=== PATIENT | male | born 1940 | race Caucasian/White ===

== ENCOUNTER 2023-09-24 11:00 | Day surgery (SDC) | payer MEDICARE, SELFPAY ==
--- NOTE | 2023-09-21 07:56 | CM ---
Patient is scheduled for an elective R THR on 09/24/23. Spoke with patient prior to surgery via telephone. Introduced role of Orthopedic Navigator. Patient reports that he lives with his in a one story condo. There is one step to enter. He
currently functions independently. He has a rolling walker and cane. He has never had VN services. PCP is Dr. Estela Choudhary.
Discussed orthopedic program and post surgical plans. Reviewed that goal is for him to return home when directed by surgeon. Also reviewed outpatient PT and additional DME he will need. Patient is in agreement with tentative plan and will go
directly to outpatient PT at [facility]. He will have support from his when he goes home.
Patient will complete online education.
Plan: Orthopedic Navigator will remain available to assist with the care of patient and will reassess discharge needs after surgery.
[2023-09-22 12:28] VITALS: BMI 27.1
[2023-09-22 13:35] LABS: Hemoglobin 13.9 g/dL (13.0-18.0); Mean Corp Hgb Conc. 33.9 g/dL (33.0-37.0); Mean Corpuscular Hgb 29.9 pg (27.0-31.0); Mean Corpuscular Volume 88.2 fL (80.0-94.0); Mean Platelet Volume 9.6 fL (7.4-10.4); Platelet Count 210 10^3/uL (130-400); Red Blood Cell Count 4.65 10^6/uL (4.70-6.10); Red Cell Dist. Width 13.1 % (11.5-14.5); White Blood Cell Count 6.9 10^3/uL (4.8-10.8)
[2023-09-22 14:04] LABS: ALT (SGPT) 29 U/L (0-50); AST (SGOT) 29 U/L (17-59); Albumin 4.2 g/dl (3.5-5.0); Alkaline Phosphatase 90 U/L (38-126); Blood Urea Nitrogen 35 mg/dl (9-20); Calcium 9.8 mg/dl (8.4-10.2); Carbon Dioxide 26 mmol/L (22-30); Chloride 105 mmol/L (98-107); Estimated Creatinine Clearance 37 ml/min; Glucose 90 mg/dl (70-99); Sodium 141 mmol/L (135-145); Total Bilirubin 0.8 mg/dl (0.2-1.3); Total Protein 6.9 g/dl (6.3-8.2); eGFR 45.62
[2023-09-22 14:39] VITALS: BMI 27.1
[2023-09-23 14:45] LABS: Glycohemoglobin (HgbA1c) 5.5 % (4.0-5.6)
[2023-09-24] VITALS (14 sets, daily range): BP systolic 70–165; BP diastolic 42–84; PULSE 61; O2SAT 95–96; BMI 27.1
[2023-09-24] MEDS: CELEBREX 200 MG PO (12:07)
[2023-09-24] MEDS: TYLENOL 650 MG PO ×4 (12:07→23:39)
[2023-09-24] MEDS: NORMOSOL-R 1000 IV ×2 (12:09→15:45)
--- NOTE | 2023-09-24 14:58 | OR.RPT ---
Operative Report
Operative Report
Orthopaedic Surgery Operative Note
DATE OF OPERATION: 09/24/2023
PREOPERATIVE DIAGNOSES: Osteoarthritis, right hip
POSTOPERATIVE DIAGNOSES: Same
OPERATION PERFORMED: Right total hip arthroplasty.
SURGEON: Laurent Kilpatrick MD
LINEN SUPPLY LOAD BUILDER: Julián Cueva PA-C who assisted with patient positioning and retraction
ANESTHESIA: Spinal
COMPLICATIONS: None.
ESTIMATED BLOOD LOSS: 50 mL.
DRAINS: None
SPECIMEN: None
FINDINGS: Advanced articular cartilage wear on the femoral head and acetabulum.
IMPLANTS:
Shena Trilogy Acetabular Shell, cluster hole, size 58
Shena Trilogy Highly Crosslinked PE Liner, neutral
Shena M/L Taper femoral stem, size 10 with standard neck length and standard offset
Biolox Ceramic Head, size 40mm +0
INDICATIONS: The patient presented to my office with debilitating right hip pain due to osteoarthritis. We reviewed the natural history of this problem, as well as the risks, benefits, and alternatives of various treatment options. The patient
exhausted all nonoperative treatment options and wished to proceed with hip replacement surgery. The patient understood the risks which included, but were not limited to, bleeding, infection, failure to relieve pain, more pain than preop, damage to
blood vessels and nerves, need for reoperation, mechanical failure of the implants, wound healing problems, stiffness, instability, blood clot, pulmonary embolism, myocardial infarction, pneumonia, arrhythmia, CVA, and . The patient accepted
these risks and wished to proceed. All questions were answered, and informed consent was obtained.
PROCEDURE IN DETAIL: The patient was identified in the preoperative holding area. The right hip was identified as the operative site. The patient was taken in the operating room and transferred to the operative table. Spinal anesthesia was
performed. IV antibiotics and tranexamic acid were administered. The patient was placed in the lateral position with Stulberg hip positioners. Axillary roll was placed. The down leg was well padded. All bony prominences were well padded. The
operative limb was prepped and draped in the usual sterile fashion.
Time out was performed. A posterolateral approach to the hip was used. The skin incision was centered over the greater trochanter. This was taken down sharply through subcutaneous tissues. Meticulous hemostasis was achieved throughout the case with
electrocautery. We split the fascia geeta in line with skin incision. I split the gluteus hayley bluntly. We cauterized all crossing vessels as we split it. I palpated the sciatic nerve and made sure it was well posterior in the operative field. It
was protected throughout the case.
I performed a partial bursectomy to identify the short external rotators. The gluteus medius and minimus were identified and retracted anteriorly. I incised the piriformis tendon and conjoint tendon at their insertions. These were tagged for later
repair. I then performed a trapezoidal capsulotomy. The edges were tagged for later repair. I referenced the cut edge of the capsular flap to 2 fixed points on the greater trochanter for assistance with recreation of limb length and offset. I then
dislocated the hip posteriorly. I performed a femoral neck osteotomy approximately 10 mm above the lesser trochanter, as per preoperative templating. The femoral head measured 54 mm in outer diameter. The distance between neck cut and the center of
femoral head was 37.5mm. I placed a curve hohmann retractor over the anterior lip of the acetabulum between the labrum and the anterior hip capsule. A second retractor was placed inferiorly just distal to the transverse acetabular ligament.
Circumferential view of the acetabulum was achieved. I incised the labrum and pulvinar with electrocautery. I started with a 53 mm reamer and reamed down to the medial wall. I then sequentially reamed up to a 57mm reamer. This gave a nice bed of
bleeding bone with excellent column support anteriorly and posteriorly. I impacted the acetabular shell in approximately 40 degrees of abduction and 20 degrees of anteversion. I matched the anteversion of the transverse acetabular ligament. I also
made sure that the anterior rim of the socket was not proud of the anterior wall to minimize the chance of iliopsoas tendinitis. I confirmed the cup was well-seated. I then impacted a neutral liner and confirmed it was well seated with the locking
mechanism.
On the femoral side, I use a box osteotome to open the proximal starting point. I found the canal with a Charnley awl and a lateralizing reamer. I then used the Shena M/L taper broaches sequentially to prepare the femoral canal. The size 10 came to
a stop at the desired level and had excellent axial and rotational stability. We trialed with a trial ball head. The hip was taken through a complete range of motion. It was noted to be stable in extension without impingement. It was stable in the
position of sleep and in flexion with internal rotation. The limb length and offset were checked compared to the capsular flap and was appropriate. The measured length between the neck cut and center of the trial femoral head was 40mm.
I removed the trials. I impacted the femoral implant to match the [place] version. It had excellent axial and rotational stability. Trial ball head was placed, and I reduced the hip and took the hip through range of motion. There was no impingement
in external rotation and extension. Position of sleep was stable. At 90 degrees of flexion and slight adduction, the hip could be internally rotated to 90 degrees with no subluxation. I palpated the sciatic nerve, which was tension free and
unharmed. Based on our capsular flap measurement, we had restored the offset and leg length. The trial ball head was removed, and the final ball head was impacted onto a clean and dry Steinberg taper. The hip was reduced.
A dilute betadine soak was performed for approximately 3 minutes, and then the hip was copiously irrigated. I repaired the capsule, piraformis, and conjoint tendon with #2 Ethibond to drill holes in the greater trochanter. Local anesthetic was
injected. The fascia geeta was closed with #1 PDS in running fashion. The subcutaneous tissues were closed with 2-0 PDS in running fashion. The skin was reapproximated with 3-0 Monocryl subcuticular suture. I placed a Prineo dressing followed by a
Mepilex Ag dressing. The patient awoke from anesthesia without difficulty. Sponge and instrument counts were correct x2 at the end of the case.
I was present and participated in the entire procedure. The patient was sent to the recovery room in stable condition.
Hany Kilpatrick MD
--- NOTE | 2023-09-24 16:35 | PTCARENOTE ---
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
position, wheels locked; Call lamb within reach; Assessment ongoing
[2023-09-24] MEDS: BACTROBAN 2% OINTMENT 1 APPLIC NASAL (20:45)
[2023-09-24] MEDS: ELIQUIS 2.5 MG PO (20:45)
[2023-09-24] MEDS: COLACE 100 MG PO (20:45)
[2023-09-24] MEDS: LIPITOR 80 MG PO (20:45)
[2023-09-24] MEDS: DECADRON 4 MG PO (20:45)
[2023-09-24] MEDS: SENOKOT 17.1999999999999993 MG PO (20:45)
[2023-09-24] MEDS: NEURONTIN 300 MG PO (22:00)
[2023-09-24] MEDS: ANCEF 5 IV (22:00)
[2023-09-24] MEDS: ZESTRIL 5 MG PO (22:00)
[2023-09-24] MEDS: FLOMAX 0.400000000000000022 MG PO (22:00)
[2023-09-25 03:28] VITALS: BP 103/56
[2023-09-25] MEDS: TYLENOL 650 MG PO ×3 (04:01→11:31)
[2023-09-25] MEDS: ANCEF 5 IV (05:04)
[2023-09-25] MEDS: COLACE 100 MG PO (07:13)
[2023-09-25] MEDS: ELIQUIS 2.5 MG PO (07:13)
[2023-09-25] MEDS: SENOKOT 17.1999999999999993 MG PO (07:13)
[2023-09-25] MEDS: TOPROL XL 50 MG PO (07:14)
[2023-09-25] MEDS: DECADRON 4 MG PO (07:14)
[2023-09-25] MEDS: BACTROBAN 2% OINTMENT 1 APPLIC NASAL (07:14)
[2023-09-25 07:15] VITALS: BP 140/74
[2023-09-25 09:50] VITALS: BP 126/65; PULSE 68; O2SAT 97
--- NOTE | 2023-09-25 10:24 | SLEEP.APNEA ---
Sleep Apnea Order
-
Patient screened as High Risk for Sleep Apnea on Stop Bang Questionnaire. Patient referred to [facility] for Pre-Study.

Name: ZACK GERARD
: 1940
Home Phone: Use [email or web address] instead
Cell Phone: [f_Reg Other Phone]
Work Phone:
Address: [address] [place] [address]
City: [place]
State: [place]
Zip: [f_[facility] Zip]
Family Physician: Estela Choudhary
Height 5 ft 9.5 in
Actual Weight 84.5 kg
Body Mass Index (BMI) 27.1
Ordering Provider: Peggy Marshall PA-C
--- NOTE | 2023-09-25 10:52 | CM ---
Reviewed chart and held rounds with PT, OT and nursing. Patient admitted as planned for elective R THR. Met with patient at bedside. Confirmed information previously obtained for assessment. Also discussed discharge plans. The plan is for patient to
return home at discharge. He will have support from his when he goes home. Patient will go directly to outpatient PT and will go to [facility]. He has an appointment scheduled for Thursday, 09/27. Reviewed need to schedule appointment with "[facility] office in two weeks for removal of dressing.
Patient has a rolling walker, cane, raised toilet seat.
He will use [facility]'s pharmacy for discharge prescriptions.
[2023-09-25 11:29] VITALS: BP 132/68
[2023-09-25 12:00] VITALS: BP 132/68; PULSE 70; O2SAT 99
--- NOTE | 2023-09-25 12:15 | W.PN.ORTHO ---
Today's Communication / Plan
-
d/c
Assessment
.
Distal Motor Intact: Yes
Dressing:
Clean, dry and intact.
Assessment:
Hx DVT/PE provoked
Plan
.
Surgery / Date: Karina Byrnes 09/24/23
DVT Prophylaxis: Other (Eliquis 2.5mg bid)
Activity:
Out of bed.
PT/OT
Discharge Plan: Home w/ Outpatient PT
Subjective
.
.:
Patient resting comfortably.
Vital Signs and Labs
.
Vital Signs and Labs:
Lab Results
09/22/23 12:24
09/22/23 12:24
Temp Pulse Resp BP Pulse Ox
98.2 F 70 16 132/68 99
09/25/23 11:29 09/25/23 11:29 09/25/23 11:29 09/25/23 11:29 09/25/23 11:29
Non-invasive Hgb result: 12.8
Physical Exam
-
HEENT: No pallor, cyanosis, or jaundice. Throat clear.
NECK: Supple. No JVD.
RESPIRATORY: Lungs clear to auscultation.
CVS: S1, S2 normal. RRR.� No murmur, rub or gallop.
ABDOMEN: Soft, non-tender. No distension. BS+/normal.
EXTREMITIES: strength equal, no calf pain with palpation
MUSIC THERAPY TEACHER: AOx3. No focal deficits. barrer and tacker grossly intact
--- NOTE | 2023-09-25 12:34 | W.DS.TRANS ---
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
-
Discharge Instructions:
Sleep Apnea Risk High
Discharge Diagnosis/Procedures R RUY 09/24/23
Diet No restrictions
Activity With Walker
Additional Activity venous compression device/SCD while sitting/
sleeping
Driving Restrictions No driving
Bathing Restrictions OK to Shower
Other Services PT
Instructions:
Stand-Alone Forms: Total Hip/Knee Replacement D/C
Changes to Home Medications: Yes
Discharge Medications:
DC Medications w/original date entered in [employer]
metoprolol succinate 50 mg tablet,extended release 24 hr 50 mg PO DAILY Blood Pressure 10/29/22
tamsulosin 0.4 mg capsule 0.4 mg PO HS Urinary Issue 10/29/22
lisinopril 10 mg tablet 10 mg PO HS Blood Pressure 11/13/22
ascorbic acid (vitamin C) 500 mg tablet (Vitamin C) 500 mg PO QPM 09/18/23
aspirin 325 mg tablet 325 mg PO DAILY 09/18/23
atorvastatin 80 mg tablet 80 mg PO HS 09/18/23
cholecalciferol (vitamin D3) 125 mcg (5,000 unit) tablet (Vitamin D3) 125 mcg PO DAILY 09/18/23
coQ10 (ubiquinol) 100 mg capsule 100 mg PO QPM 09/18/23
fish oil-dha-epa 1,200 mg-144 mg-216 mg capsule 1 cap PO DAILY 09/18/23
folic acid 800 mcg tablet 0.8 mg PO DAILY 09/18/23
glutamine 500 mg tablet (L-Glutamine) 500 mg PO DAILY@1200 09/18/23
lutein 25 mg-zeaxanthin 5 mg capsule 1 cap PO DAILY 09/18/23
multivitamin 1 tab PO DAILY 09/18/23
mupirocin 2 % topical ointment 1 applic topical BID infection prevention #1 tube 09/22/23
acetaminophen 325 mg capsule (Tylenol) 650 mg (2 x 325 mg) PO QID #2 caps 09/25/23
apixaban 2.5 mg tablet (Eliquis) 2.5 mg PO BID Blood clot prevention/tx #1 tab 09/25/23
aspirin 81 mg tablet,delayed release 81 mg PO DAILY coronary artery disease #1 tab 09/25/23
dexamethasone 4 mg tablet 4 mg PO BID inflammation #6 tabs 09/25/23
docusate sodium 100 mg capsule (Colace) 100 mg PO BID stool softner #1 cap 09/25/23
famotidine 20 mg tablet 20 mg PO HS GI prophylaxis #30 tabs 09/25/23
gabapentin 300 mg capsule 300 mg PO HS sleep/pain #10 caps 09/25/23
magnesium hydroxide 400 mg/5 mL oral suspension (Milk of Magnesia) 30 ml PO HS PRN Constipation #1 mL 09/25/23
oxycodone 5 mg tablet 5 mg PO Q6H PRN 1 tab moderate pain, 2 tabs severe pain #30 tabs 09/25/23
sennosides 8.6 mg tablet (Senokot) 17.2 mg (2 x 8.6 mg) PO BID laxative #2 tabs 09/25/23
Home Medication Changes
apixaban 2.5 mg tablet (Eliquis) 2.5 mg PO BID Blood clot prevention/tx #1 tab 09/25/23
aspirin 81 mg tablet,delayed release 81 mg PO DAILY coronary artery disease #1 tab 09/25/23
dexamethasone 4 mg tablet 4 mg PO BID inflammation #6 tabs 09/25/23
docusate sodium 100 mg capsule (Colace) 100 mg PO BID stool softner #1 cap 09/25/23
famotidine 20 mg tablet 20 mg PO HS GI prophylaxis #30 tabs 09/25/23
gabapentin 300 mg capsule 300 mg PO HS sleep/pain #10 caps 09/25/23
magnesium hydroxide 400 mg/5 mL oral suspension (Milk of Magnesia) 30 ml PO HS PRN Constipation #1 mL 09/25/23
oxycodone 5 mg tablet 5 mg PO Q6H PRN 1 tab moderate pain, 2 tabs severe pain #30 tabs 09/25/23
Pending Results: No
== END 2023-09-25 14:49 | disposition home or self-care (01) ==
LOC: SDS 11:00
PROVIDERS: ATTENDING PHYSICIAN Orthopaedic Surgery; FAMILY PHYSICIAN Family Medicine; OTHER PHYSICIAN Internal Medicine Cardiovascular Disease; OTHER PHYSICIAN Physician Assistant Medical
DX: M16.11 Unilateral primary osteoarthritis, right hip (principal)
CPT/HCPCS: 27130; 36415; 73502; 80053; 83036; 85027; 87070; 97110; 97116; 97162; 97166; 97530; 97535; C1776

== ENCOUNTER → 2023-11-24 10:15 | Outpatient (REF) | payer MEDICARE, SELFPAY | LOC: DHSLP 10:15 | PROVIDERS: ATTENDING PHYSICIAN Internal Medicine Critical Care Medicine; FAMILY PHYSICIAN Family Medicine | DX: G47.33 Obstructive sleep apnea (adult) (pediatric) (principal) | CPT/HCPCS: 95800 ==

== ENCOUNTER → 2024-12-19 11:02 | Outpatient (REF) | payer MEDICARE, SELFPAY | LOC: HWRAD 11:02 | PROVIDERS: ATTENDING PHYSICIAN Specialist; FAMILY PHYSICIAN Family Medicine | DX: N20.1 Calculus of ureter (principal) | CPT/HCPCS: 74018 ==